=== PATIENT | female | born 1960 | race Caucasian/White ===

== ENCOUNTER 2017-04-01 08:30 | Day surgery (SDC) | payer OTHER ==
[2017-04-01] MEDS ORDERED: Bupivacaine 0.5% SDV PF* 30 ML VIAL ONE (08:36)
[2017-04-01 09:50] VITALS: BP 144/79
--- NOTE | 2017-04-01 12:56 | OP ---
DATE OF OPERATION: 04/01/17 - [facility] DATE OF : 58 SURGEON: Vance Hamm MD. [employer]: [employer]. ANESTHESIOLOGIST: None. ANESTHESIA: Local only with right thumb digital block with 0.5% Marcaine. PRE-OP DIAGNOSIS: Right thumb interphalangeal joint ganglion cyst. POST-OP DIAGNOSIS: Right thumb interphalangeal joint ganglion cyst. OPERATIVE PROCEDURE: Excision of right thumb interphalangeal joint ganglion cyst. INDICATIONS: Shannon is 56. She has a little pea-sized mass just over the ulnar side, just distal to the right thumb interphalangeal joint right in the mid axial line. It is very symptomatic when she pinches objects. It is bothering her quite a bit. She came to my office desiring to have it removed due to the discomfort. A few years back, she had a similar cyst excised off the radial aspect of that interphalangeal joint. This has done well. We had discussed the risks and benefits. ESTIMATED BLOOD LOSS: 5 mL. COMPLICATIONS: None. FINDINGS: As expected. DESCRIPTION OF PROCEDURE: Shannon was seen in the preoperative holding area. The correct side, site, and procedure were identified. We had a time-out and then I anesthetized the right thumb with a digital block with 0.5% Marcaine. We came back to the operating room. The arm was prepped and draped in the usual fashion and a timeout was performed. I began by making a 1-cm incision directly centered over the mass in the mid axial line on the ulnar aspect of the right thumb. Dissection was carried down and full thickness flaps were raised right off of the borders of the cyst. The cyst tracked back to the interphalangeal joint, was coming off of the interval between the collateral ligament and the terminal extensor tendon. The entirety of the cyst was excised. The joint capsule in that interval was excised. I had her flex and extend the thumb tip down and then when she flexed the thumb tip down, quite a bit more cystic material came out from underneath the collateral ligament. This was excised. We were starting to get a little venous congestion with the tourniquet and I had used a large-sized Tourni-Cot, which I had placed prior to making the skin incision. I took this off and I switched out for a medium-sized Tourni-Cot, with improved hemostasis. I again checked everything just to make sure it was good. I had brought just a few millimeters of the transverse limb off the proximal aspect of the incision just so that I could see things a little bit better. I was very satisfied with the cyst excision and the debridement of the joint capsule in the aforementioned interval. We therefore went ahead and irrigated out the wound. The skin was closed with 5-0 interrupted nylon sutures. The finger was dressed with Xeroform , some 1-inch Sharlene and Coban. She was then taken to the recovery room in stable condition. [id number]/[facility] #: [id number] [facility]ILDR[facility] HOSPITALTiffanie
== END 2017-04-01 09:50 | disposition home or self-care (01) ==
LOC: OREAST 08:30
PROVIDERS: ATTEND Orthopaedic Surgery Hand Surgery
DX: M67.441 Ganglion, right hand (principal)
CPT/HCPCS: 88304